=== PATIENT | female | born 1970 | race African-American/Black ===

== ENCOUNTER 2017-03-04 15:01 | Emergency (ER) | payer SELFPAY ==
[2017-03-04] MEDS ORDERED: ATENOLOL (15:10)
[2017-03-04] MEDS ORDERED: METFORMIN (15:10)
[2017-03-04] MEDS ORDERED: HCTZ (15:10)
[2017-03-04] MEDS ORDERED: LIPITOR (15:10)
== END 2017-03-04 15:40 | disposition home or self-care (01) ==
LOC: SED 15:01
DX: S46.911A Strain of unspecified muscle, fascia and tendon at shoulder and upper arm level, right arm, initial encounter (principal); I10 Essential (primary) hypertension; E11.9 Type 2 diabetes mellitus without complications; E78.5 Hyperlipidemia, unspecified; X58.XXXA Exposure to other specified factors, initial encounter; Y92.009 Unspecified place in unspecified non-institutional (private) residence as the place of occurrence of the external cause
CPT/HCPCS: 99283

== ENCOUNTER 2017-05-07 16:00 | Emergency (ER) | payer OTHER ==
[~2017-05-07] VITALS: Ht 154.9 cm; Wt 69.8 kg
--- NOTE | ~2017-05-07 | CT71 ---
[facility] A Service of [facility] RADIOLOGY TEXT RESULTS PATIENT: JEFF LARKIN LOCATION: [facility] : 70 UNIT #: [id number] AGE: [address]: Kelvin Cash MD SEX: F ORDER DR: [id number] [facility] [address] [place], [place] [address] [id number] E MR#: [id number] Acc #: [id number] NAME: JEFF LARKIN : 1970 SEX: F STUDY DATE/TIME: 05/07/2017 18:22 UNIT: [facility] ROOM: STUDY DESCRIPTION: CT Head Wo Contrast Attending Physician: Kelvin Cash M.D. Ordering Physician: Mirta Hammer M.D. Primary Care Physician: [facility], [facility]. MEDICAL IMAGING REPORT This report is preliminary unless electronic signature is present EXAM Noncontrast head CT HISTORY Headaches since 05/04/2017. History of hypertension, diabetes. TECHNIQUE This CT exam was performed with one or more of the following radiation dose reduction techniques: automatic exposure control, adjustment of mA and/or kV according to patient size, and iterative reconstruction. FINDINGS Axial noncontrast imaging brain demonstrates brain parenchyma to be normal. No evidence of mass, mass effect or midline shift. No hemorrhage or abnormal extraaxial fluid collections. Some artifact related to the patient's left year piercing. The skull base remarkable for a mucous retention cyst within both sphenoid sinuses. Mastoids and skull base unremarkable. IMPRESSION 1. No acute intracranial abnormality identified. Some artifact related to the patient's left year piercing. 2. Bilateral sphenoid sinus mucous retention cysts. Dictated by... Satish Rouse M.D. THIS IS AN ELECTRONICALLY VERIFIED REPORT Satish Rouse M.D. at 05/08/2017 2:32 PM TRENA/jayson [facility] A Service of [facility] RADIOLOGY TEXT RESULTS PATIENT: JEFF LARKIN LOCATION: [facility] : 70 UNIT #: [id number] AGE: [address]: Kelvin Cash MD SEX: F ORDER DR: TD: 05/08/2017 06:07 JOB #: [id number] MEDICAL IMAGING REPORT Page 1 of 1 COPY
--- NOTE | ~2017-05-07 | CT17 ---
[facility] A Service of [facility] RADIOLOGY TEXT RESULTS PATIENT: JEFF LARKIN LOCATION: [facility] : 70 UNIT #: [id number] AGE: [address]: Kelvin Cash MD SEX: F ORDER DR: [id number] [facility] [address] [place], [place] [address] [id number] E MR#: [id number] Acc #: [id number] NAME: JEFF LARKIN : 1970 SEX: F STUDY DATE/TIME: 05/07/2017 18:24 UNIT: [facility] ROOM: STUDY DESCRIPTION: CT Angio Head Attending Physician: Kelvin Cash M.D. Ordering Physician: Mirta Hammer M.D. Primary Care Physician: [facility], [facility]. MEDICAL IMAGING REPORT This report is preliminary unless electronic signature is present EXAM CT angiogram of the head and neck HISTORY Headache since 05/04/2017. 46-year-old female with a history of hypertension and diabetes. TECHNIQUE CT angiography of the head and neck vessels performed during the intravenous administration of 100 mL of Isovue-370. Imaging acquired in the axial plane followed by multiple reconstructed and reformatted images for the purpose of 3-D CT angiography of the head and neck vessels. This CT exam was performed with one or more of the following radiation dose reduction techniques: automatic exposure control, adjustment of mA and/or kV according to patient size, and iterative reconstruction. COMPARISON Earlier head CT same day. Preliminary wet reading provided by Dr. Heath Rouse at 19:46. FINDINGS CT ANGIOGRAM NECK: There is a normal aortic arch branch pattern and no hemodynamically significant narrowing is suspected at great vessel origins from the arch. By NASCET criteria, there is 0% stenosis at either carotid bifurcation. Both carotid siphons are widely patent. Both vertebral arteries are widely patent. Left is slightly dominant. Both supply the basilar. Evaluation of the intracranial circulation shows no intracranial vascular cutoff. There is an anterior communicator present. There is a moderate-sized left posterior communicator present and the left P1 vessel [facility] A Service of [facility] RADIOLOGY TEXT RESULTS PATIENT: JEFF LARKIN LOCATION: [facility] #: [id number] : [birth year] UNIT #: [id number] AGE: [address]: Kelvin Cash MD SEX: F ORDER DR: is mildly hypoplastic. No definite right posterior communicator is seen. There is no focal central stenosis. The dural venous sinuses are grossly patent. No suspicion for intracranial aneurysm. CT angiography is limited for evaluation for aneurysm at the level of the skull base due to the adjacent bones at this institution. The mastoid air cells are clear. There is polypoid mucosal disease in the sphenoid sinuses and right greater than left maxillary sinus with mild mucosal thickening in the ethmoid air cells but no sinus air-fluid level. There is some streak artifact from dental metal. IMPRESSION 1. No evidence for intracranial vascular cutoff, focal central stenosis or definite intracranial aneurysm knik of Jacobsen vasculature. Please be aware that CT angiography is limited for evaluation for aneurysm at the level of the skull base due to the adjacent bones. 2. By NASCET criteria 0% stenosis at either carotid bifurcation. Both vertebral arteries are patent. 3. Paranasal sinus disease but no sinus air-fluid level. 4. Vascular variations detailed above. STAT * RESULT Dictated by... Olimpia Paredes M.D. THIS IS AN ELECTRONICALLY VERIFIED REPORT Olimpia Paredes M.D. at 05/08/2017 5:41 PM Wallace TD: 05/08/2017 08:10 JOB #: [id number] MEDICAL IMAGING REPORT Page 1 of 1 COPY
--- NOTE | ~2017-05-07 | CT23 ---
[facility] A Service of [facility] RADIOLOGY TEXT RESULTS PATIENT: JEFF LARKIN LOCATION: [facility] : 70 UNIT #: [id number] AGE: [address]: Kelvin Cash MD SEX: F ORDER DR: [id number] [facility] [address], [place] [address] [id number] E MR#: [id number] Acc #: [id number] NAME: JEFF LARKIN : 1970 SEX: F STUDY DATE/TIME: 05/07/2017 18:24 UNIT: [facility] ROOM: STUDY DESCRIPTION: CT Angio Neck Attending Physician: Kelvin Cash M.D. Ordering Physician: Mirta Hammer M.D. Primary Care Physician: [facility] MEDICAL IMAGING REPORT This report is preliminary unless electronic signature is present EXAM CT angiogram of the neck HISTORY FINDINGS Please see CT angiogram of the head for results. Dictated by... Olimpia Paredes M.D. THIS IS AN ELECTRONICALLY VERIFIED REPORT Olimpia Paredes M.D. at 05/08/2017 5:41 PM Wallace TD: 05/08/2017 08:11 JOB #: [id number] MEDICAL IMAGING REPORT Page 1 of 1 COPY
[~2017-05-07 16:00] MED LIST: ATENOLOL; HCTZ; LIPITOR; METFORMIN
[2017-05-07 17:11] LABS: BASOPHIL# 0.1 X10e3 (0-0.3); BASOPHIL% 0.9 % (0-2.5); DIFF IND NO; EOSINOPHIL# 0.2 X10e3 (0-0.7); EOSINOPHIL% 2.7 % (0.0-7.0); HEMATOCRIT 37.1 % (35.0-45.0); HEMOGLOBIN 12.3 gm/dL (12.0-16.0); LYMPHOCYTE# 2.2 X10e3 (1.0-3.5); LYMPHOCYTE% 30.3 % (17.0-45.0); MEAN CELL VOLUME 84.8 FL (83-96); MEAN CORPUSCULAR HEMOGLOBIN 28.2 PG (28-34); MEAN CORPUSCULAR HGB CONC 33.2 g/dL (30-36); MEAN PLATELET VOLUME 8.3 FL (6.5-11.5); MONOCYTE# 0.5 X10e3 (0-1.0); MONOCYTE% 6.5 % (3.0-12.0); NEUTROPHIL# 4.4 X10e3 (1.5-7.1); NEUTROPHIL% 59.6 % (40-75); PLATELET COUNT 283 X10e3 (140-420); RED BLOOD COUNT 4.37 X10e (3.90-5.30); RED CELL DISTRIBUTION WIDTH 15.4 % (11.0-15.5); WHITE BLOOD COUNT 7.3 X10e3 (4.0-10.5)
[2017-05-07 17:33] LABS: ALBUMIN SERUM 4.2 g/dL (3.5-5.0); BILIRUBIN, DIRECT 0.1 mg/dL (0.0-0.2); BILIRUBIN,INDIRECT 0.6 mg/dL (0.0-0.9); BILIRUBIN,TOTAL 0.7 mg/dL (0.2-2.0); CALCIUM SERUM 9.3 mg/dL (8.4-10.2); CREATININE SERUM 0.7 mg/dL (0.6-1.4); GLOM FILT RATE Estimated 120.4 mL/min (>60); POTASSIUM 3.2 mmol/L (3.5-5.1); PROTEIN TOTAL SERUM 7.2 g/dL (6.0-8.3)
[2017-05-07 17:44] LABS: INR 1.1; PARTIAL THROMBOPLASTIN TIME 27.1 SECONDS (23.5-31.3); PROTHROMBIN TIME (PATIENT) 11.5 SECONDS (10.0-11.7)
== END 2017-05-07 20:20 | disposition home or self-care (01) ==
LOC: CED 16:00
PROVIDERS: Emergency Medicine
DX: R51 Headache (principal); E11.9 Type 2 diabetes mellitus without complications; I10 Essential (primary) hypertension; Z90.710 Acquired absence of both cervix and uterus
CPT/HCPCS: 36415; 70450; 70496; 70498; 80048; 80076; 85025; 85610; 85730; 96361; 96374; 96375; 99284; J1200; J1885; J2765; Q9967

== ENCOUNTER 2017-05-18 22:12 | Emergency (ER) | payer OTHER ==
[~2017-05-18] VITALS: Ht 154.9 cm; Wt 69.8 kg
--- NOTE | ~2017-05-18 | CT71 ---
[facility] A Service of [facility] RADIOLOGY TEXT RESULTS PATIENT: JEFF LARKIN LOCATION: [facility] : 70 UNIT #: [id number] AGE: [address]: Jerica Eugene MD SEX: F ORDER DR: [id number] [place] [id number] E MR#: [id number] Acc #: [id number] NAME: JEFF LARKIN : 1970 SEX: F STUDY DATE/TIME: 05/18/2017 22:53 UNIT: SED ROOM: STUDY DESCRIPTION: CT Head Wo Contrast Attending Physician: Jerica Eugene M.D. Ordering Physician: Jerica Eugene M.D. Primary Care Physician: [facility], [facility], [facility]. MEDICAL IMAGING REPORT This report is preliminary unless electronic signature is present. EXAM Head CT, 05/18/2017, at 22:53. INDICATIONS Hypertension and headache for 3 weeks. TECHNIQUE Axial images were obtained from the base to the vertex without contrast. This CT exam was performed with one or more of the following radiation dose reduction techniques: automatic exposure control, adjustment of mA and/or kV according to patient size, and iterative reconstruction. COMPARISON Comparison made with 05/07/2017. FINDINGS Ventricular size and configuration remain normal. No acute infarct or hemorrhage is seen. There are no masses. There is no skull fracture. IMPRESSION Negative head CT. Dictated by... Kelvin Trujillo Jr., M.D. THIS IS AN ELECTRONICALLY VERIFIED REPORT Kelvin Trujillo Jr., M.D. at 05/20/2017 4:14 AM WILLIS/carroll TD: 05/19/2017 22:32 JOB #: [id number] [facility] A Service [facility] RADIOLOGY TEXT RESULTS PATIENT: JEFF LARKIN LOCATION: SED : 70 UNIT #: [id number] AGE: [address]: Jerica Eugene MD SEX: F ORDER DR: MEDICAL IMAGING REPORT Page 1 of 1
[2017-05-18] MEDS ORDERED: NORVASC (22:21)
[2017-05-18] MEDS ORDERED: ACYCLOVIR (22:21)
== END 2017-05-18 23:41 | disposition home or self-care (01) ==
LOC: SED 22:12
DX: R51 Headache (principal); I10 Essential (primary) hypertension; E11.9 Type 2 diabetes mellitus without complications
CPT/HCPCS: 70450; 99284